=== PATIENT | female | born 1975 ===

== ENCOUNTER 2020-04-04 04:32 | Day surgery (SDC) | payer OTHER ==
[2020-04-01 17:47] VITALS: BMI 26.2
[2020-04-04] MEDS ORDERED: oxyCODONE HCL 5 MG TABLET PO PRN ×2 (15:00)
[2020-04-04] MEDS ORDERED: MIDAZOLAM HCL 2 MG/2 ML SINGLE DOSE VIAL ONE (15:30)
[2020-04-04] MEDS ORDERED: PROPOFOL 20 ML ONE (15:30)
[2020-04-04] MEDS ORDERED: DEXAMETHASONE SOD PHOSPHATE 4 MG/1 ML VIAL ONE (15:53)
--- NOTE | 2020-04-04 16:32 | OP ---
Operative Note - Note: Operative Date: 04/04/20 Pre-Operative Diagnosis: Left renal stone Operation: Left ESWL Findings: 5 mm mid pole Left renal stone Post-Operative Diagnosis: Same as Pre-op Surgeon: Nick Denis Anesthesia: Regional Estimated Blood Loss (mls): 0 Operative Report Dictated: Yes
[2020-04-04 17:42] VITALS: BP 117/63; PULSE 87; TEMP 96.9
--- NOTE | 2020-04-04 19:19 | OP ---
DATE OF OPERATION: 04/04/2020 PREOPERATIVE DIAGNOSIS: Left renal stone. POSTOPERATIVE DIAGNOSIS: Left renal stone. PROCEDURE: Left extracorporeal shockwave lithotripsy. ATTENDING: Annelise Denis M.D. ANESTHESIA: Fractional. DESCRIPTION OF PROCEDURE: Patient was brought in the operating room, placed in a supine position on the operating room table. Ultrasonography and fluoroscopy were performed. A 5-mm left mid pole stone was identified. Anesthesia and preoperative antibiotics were then administered to the patient. The patient was then given shockwave lithotripsy. 2500 impulses at 17 joules of power were administered to the stone with excellent fragmentation of the stone under realtime ultrasonography and fluoroscopy. No complications were noted. The patient tolerated the procedure very well. ANNELISE VASQUEZ M.D. /[id number]
== END 2020-04-04 17:35 | disposition home or self-care (01) ==
LOC: JASU-SURG 04:32 → MERGE 17:00 → JASU-SURG 17:35
PROVIDERS: ATTEND Urology
PROC: 0TF4XZZ Fragmentation in Left Kidney Pelvis, External Approach (ICD-10-PCS; principal; 2020-04-04 14:45)
DX: N20.0 Calculus of kidney (principal)
CPT/HCPCS: 81025

== ENCOUNTER 2020-10-03 04:16 | Day surgery (SDC) | payer OTHER ==
[2020-09-29 10:39] VITALS: BMI 25.3
[2020-10-03] MEDS ORDERED: MIDAZOLAM HCL 2 MG/2 ML SINGLE DOSE VIAL ONE (11:59)
[2020-10-03] MEDS ORDERED: PROPOFOL 20 ML ONE ×3 (12:04→12:32)
[2020-10-03 13:03] VITALS: TEMP 98.4
[2020-10-03] MEDS ORDERED: ACETAMINOPHEN 325 MG TABLET (FP) PO ONE (13:15)
[2020-10-03] MEDS ORDERED: ACETAMINOPHEN 325 MG TABLET (FP) ONE (13:20)
[2020-10-03] MEDS ORDERED: oxyCODONE HCL 5 MG TABLET ONE (14:25)
[2020-10-03] MEDS ORDERED: oxyCODONE HCL 5 MG TABLET PO ONE (14:25)
[2020-10-03 14:35] VITALS: BP 135/84; PULSE 82
== END 2020-10-03 15:00 | disposition home or self-care (01) ==
LOC: JASU-SURG 04:16
PROVIDERS: ATTEND Urology
PROC: 0TF3XZZ Fragmentation in Right Kidney Pelvis, External Approach (ICD-10-PCS; principal; 2020-10-03 11:00)
DX: N20.0 Calculus of kidney (principal)
CPT/HCPCS: 81025

== ENCOUNTER 2022-10-18 15:19 | Emergency (ER) | payer OTHER ==
[2022-10-18 15:31] VITALS: RESP 18; TEMP 98.3; BMI 29.2
[2022-10-18] MEDS ORDERED: ACETAMINOPHEN 1000 MG/100 ML BAG IVPB ONE (15:57)
[2022-10-18] MEDS ORDERED: ACETAMINOPHEN INJECTION 100 ML IVPB ONE (16:52)
[2022-10-18 18:31] LABS: BASO % 1.1 % (0-2.0); EOS % 3.5 % (0-4.5); HEMATOCRIT 37.6 % (32.4-45.2); HEMOGLOBIN 12.4 GM/dL (10.7-15.3); LYMPH % 33.4 % (8-40); MCH 27.4 pg (25.7-33.7); MEAN PLT VOLUME 8.1 fl (7.5-11.1); MONO % 6.9 % (3.8-10.2); NEUT % 55.1 % (42.8-82.8); PLATELET COUNT 305 10^3/uL (134-434); RBC 4.53 M/mm3 (3.60-5.2); RDW 15.8 % (11.6-15.6)
[2022-10-18 18:35] LABS: PH,URINE 6.5 (5.0-8.0); URINE APPEARANCE CLEAR; URINE BILIRUBIN NEGATIVE (NEGATIVE); URINE COLOR YELLOW; URINE GLUCOSE (UA) NEGATIVE (NEGATIVE); URINE KETONE TRACE (NEGATIVE); URINE LEUK ESTERASE NEGATIVE (NEGATIVE); URINE NITRITE NEGATIVE (NEGATIVE); URINE PROTEIN NEGATIVE (NEGATIVE); URINE UROBILINOGEN 0.2 mg/dL (0.2-1.0)
[2022-10-18 18:38] LABS: HCG,QUALITATIVE URINE Negative
[2022-10-18 18:59] LABS: CHLORIDE 106 mmol/L (98-107); SODIUM 138 mmol/L (136-145)
[2022-10-18 19:02] LABS: ALBUMIN 3.8 g/dl (3.4-5.0); BLOOD UREA NITROGEN 8.6 mg/dL (7-18); CO2 27 mmol/L (21-32); GLUCOSE,RANDOM 75 mg/dL (74-106); LIPASE 46 U/L (73-393)
[2022-10-18 19:05] LABS: CREATININE 0.8 mg/dL (0.55-1.3)
[2022-10-18 19:06] LABS: TOT PROT 7.5 g/dl (6.4-8.2)
[2022-10-18 19:07] LABS: BILIRUBIN,TOTAL 0.4 mg/dL (0.2-1)
[2022-10-18 19:08] LABS: ALK PHOS 101 U/L (45-117)
[2022-10-18 19:25] LABS: ANION GAP 5 MMOL/L (8-16); SGOT/AST 81 U/L (15-37); SGPT/ALT 18 U/L (13-61)
[2022-10-19] MEDS ORDERED: KETOROLAC TROMETHAMINE 30 MG/1 ML VIAL IVPUSH ONE (01:17)
[2022-10-19] MEDS ORDERED: KETOROLAC TROMETHAMINE 30 MG/1 ML VIAL ONE (01:22)
[2022-10-19 01:28] VITALS: BP 122/76; PULSE 78
== END 2022-10-19 01:32 | disposition home or self-care (01) ==
LOC: JER 15:19
PROC: 3E033NZ Introduction of Analgesics, Hypnotics, Sedatives into Peripheral Vein, Percutaneous Approach (ICD-10-PCS; principal; 2022-10-18)
PROC: 3E0333Z Introduction of Anti-inflammatory into Peripheral Vein, Percutaneous Approach (ICD-10-PCS; 2022-10-18)
DX: R10.31 Right lower quadrant pain (principal)
CPT/HCPCS: 36415; 74177-TC; 80053; 81003; 83690; 84132; 84703; 85025; 87086; 99285-25; Q9967